=== PATIENT | male | born 1995 | race Caucasian/White ===

== ENCOUNTER 2017-06-06 16:13 | Emergency (ER) | payer OTHER ==
[~2017-06-06] VITALS: Ht 170.2 cm; Wt 90.0 kg
[2017-06-06 16:16] VITALS: TEMP 36.8; Ht 170.2 cm; Wt 90.0 kg
--- NOTE | 2017-06-06 16:45 | EMERGENCY ROOM VISIT NOTE ---
History Report prepared by Andi: Daniel Yeung Under the Supervision of: Dr. Carson Murphy M.D. First contact with patient: 16:18 Chief Complaint: CHEST PAIN Stated Complaint: CHEST PAIN Nursing Triage Summary: pt reports he is here for chest pain started friday and went to pcp had ekg sent to ed for further eval History of Present Illness The patient is a 22 year old male who presents to the Emergency Room with complaints of waxing and waning left-sided chest pain that started 5 days ago. He states that when the pain started, the pain was a 6 or a 7 out of 10 in severity, and that episode lasted about 5 minutes. The patient says that the pain then mostly went away, and has been a 0 or a 1 out of 10 in severity since then. He notes that he was driving back to [place] [employer] 5 days ago from [place], which is about a [address]. The patient says that the pain worsens with deep breathing as well as sitting up. He notes that leaning forward does not change the severity of the pain. He adds that he was seen at [facility] on [address] this morning, and after having an EKG done there, he was sent here for further evaluation. The patient was noted to be mildly hypertensive there. The patient says that when he was told that he had to come here, the chest pain worsened. He states that he is still having the worsened pain. He says that at times the pain radiates down to his abdomen. He states that he has never had chest pain like this before 5 days ago. He adds that he has been a bit short of breath at times. The patient notes that he has not had any major recent illnesses. He states that he has not taken any medications for the pain. The patient notes that his grandmother did have heart problems. Pt denies LOC, headache, fevers, chills, diaphoresis, visual changes, neck pain, tearing pain radiating to the back, personal history or family history of aneurysm or pulmonary embolism, leg swelling, coagulation abnormalities, recent surgery or immobilization, nausea, vomiting, melena, hematochezia, urinary symptoms, numbness, weakness, lymphadenopathy, rash, or other complaints. Source of History: patient Onset: 5 days ago Position: chest (left) Symptom Intensity: at worst a 6 or 7 out of 10 Timing: waxes/wanes Modifying Factors (Worsening): breathing, other (sitting up) Associated Symptoms: + SOB, + abdominal pain Review of Systems See HPI for pertinent positives and negatives. A total of ten systems were reviewed and were otherwise negative. Past Medical & Surgical Medical Problems: (1) No chronic diseases present Family History Heart disease Social History Smoking Status: Never Smoker Marital Status: single Housing Status: lives with roommate Occupation Status: [employer] student Current/Historical Medications No Active Prescriptions or Reported Meds Allergies Coded Allergies: No Known Allergies (Unverified , 06/06/17) Physical Exam Vital Signs Date Time Temp Pulse Resp B/P (MAP) Pulse Ox O2 Delivery O2 Flow Rate FiO2 06/06/17 20:01 129/71 06/06/17 20:00 81 13 98 06/06/17 19:45 70 17 97 06/06/17 19:31 135/76 06/06/17 19:30 76 21 98 06/06/17 19:15 72 97 06/06/17 19:01 135/75 06/06/17 19:00 83 19 98 06/06/17 18:01 125/80 06/06/17 18:00 74 20 97 Room Air 06/06/17 17:31 128/78 06/06/17 17:30 64 21 98 Room Air 06/06/17 17:02 96 Room Air 06/06/17 17:02 66 16 127/72 96 Room Air 06/06/17 17:02 96 Room Air 06/06/17 16:16 36.8 70 18 148/89 99 Room Air Physical Exam GENERAL: Awake, alert, well-appearing, in no distress HENT: Normocephalic, atraumatic. Oropharynx unremarkable. EYES: Normal conjunctiva. Sclera non-icteric. NECK: Supple. No nuchal rigidity. FROM. No masses. RESPIRATORY: Clear to auscultation. No wheezes. No rales. Normal respiratory effort. CARDIAC: Normal rate. Normal rhythm. No murmurs. No rubs. Extremities warm and well perfused. Pulses equal. No JVD. Normal S1 and S2. GI: Soft, non-distended. No tenderness to palpation. No rebound or guarding. No masses. RECTAL: Deferred. MUSCULOSKELETAL: Atraumatic. Chest examination reveals no tenderness. The back is symmetrical on inspection without obvious abnormality. There is no CVA tenderness to palpation. No joint edema. LOWER EXTREMITIES: Calves are equal size bilaterally and non-tender. No edema. No discoloration. NEURO: Normal sensorium. No sensory or motor deficits noted. SKIN: No rash or jaundice noted. Medical Decision & Procedures ER Provider Diagnostic Interpretation: X-ray: Per my interpretation, radiologist review. CHEST ONE VIEW PORTABLE CLINICAL HISTORY: CHEST PAIN pain COMPARISON STUDY: No previous studies for comparison. FINDINGS: The bones soft tissues and hemidiaphragms are normal. The cardiomediastinal silhouette is normal. The lungs are clear. The pulmonary vasculature is normal. IMPRESSION: Negative chest. The above report was generated using voice recognition software. It may contain grammatical, syntax or spelling errors. Electronically signed by: Juan Luis Santana M.D. 06/06/2017 5:00 PM Dictated Date/Time: 06/06/2017 4:59 PM Laboratory Results 06/06/17 16:51 Red Blood Count 4.98, Mean Corpuscular Volume 90.0, Mean Corpuscular Hemoglobin 32.3, Mean Corpuscular Hemoglobin Concent 35.9, Mean Platelet Volume 8.9, Neutrophils (%) (Auto) 65.6, Lymphocytes (%) (Auto) 23.3, Monocytes (%) (Auto) 6.9, Eosinophils (%) (Auto) 3.9, Basophils (%) (Auto) 0.2, Neutrophils # (Auto) 5.86, Lymphocytes # (Auto) 2.08, Monocytes # (Auto) 0.62, Eosinophils # (Auto) 0.35, Basophils # (Auto) 0.02 06/06/17 16:51 Test 06/06/17 16:51 White Blood Count 8.94 K/uL (4.8-10.8) Red Blood Count 4.98 M/uL (4.7-6.1) Hemoglobin 16.1 g/dL (14.0-18.0) Hematocrit 44.8 % (42-52) Mean Corpuscular Volume 90.0 fL (80-100) Mean Corpuscular Hemoglobin 32.3 pg (25-34) Mean Corpuscular Hemoglobin Concent 35.9 g/dl (32-36) Platelet Count 275 K/uL (130-400) Mean Platelet Volume 8.9 fL (7.4-10.4) Neutrophils (%) (Auto) 65.6 % Lymphocytes (%) (Auto) 23.3 % Monocytes (%) (Auto) 6.9 % Eosinophils (%) (Auto) 3.9 % Basophils (%) (Auto) 0.2 % Neutrophils # (Auto) 5.86 K/uL (1.4-6.5) Lymphocytes # (Auto) 2.08 K/uL (1.2-3.4) Monocytes # (Auto) 0.62 K/uL (0.11-0.59) Eosinophils # (Auto) 0.35 K/uL (0-0.5) Basophils # (Auto) 0.02 K/uL (0-0.2) RDW Standard Deviation 42.6 fL (36.4-46.3) RDW Coefficient of Variation 13.0 % (11.5-14.5) Immature Granulocyte % (Auto) 0.1 % Immature Granulocyte # (Auto) 0.01 K/uL (0.00-0.02) Erythrocyte Sedimentation Rate 7 mm/hr (0-14) D-Dimer < 190 ug/L FEU (0-500) Anion Gap 7.0 mmol/L (3-11) Est Creatinine Clear Calc Drug Dose 136.3 ml/min Estimated GFR () 138.2 Estimated GFR (Non- 119.2 BUN/Creatinine Ratio 15.5 (10-20) Calcium Level 10.0 mg/dl (8.5-10.1) Total Bilirubin 0.6 mg/dl (0.2-1) Direct Bilirubin 0.2 mg/dl (0-0.2) Aspartate Amino Transf (AST/SGOT) 13 U/L (15-37) Alanine Aminotransferase (ALT/SGPT) 21 U/L (12-78) Alkaline Phosphatase 86 U/L (45-117) Total Creatine Kinase 84 U/L (39-308) Creatine Kinase MB 0.5 ng/ml (0.5-3.6) Creatine Kinase MB Ratio 0.6 (0-3.0) Troponin I < 0.015 ng/ml (0-0.045) C-Reactive Protein < 0.29 mg/dl (0-0.29) Total Protein 8.2 gm/dl (6.4-8.2) Albumin 4.2 gm/dl (3.4-5.0) Lipase 115 U/L (73-393) Laboratory results reviewed by me ECG Per My Interpretation Indication: chest pain Rate (beats per minute): 71 Rhythm: normal sinus Findings: no acute ischemic change, no ectopy, other (normal intervals, mild J- point elevation in V3, and lead 2 and 3) Change: EKG from doctor's office earlier today: Sinus rhythm at 66 bpm, no ectopy, mild ST elevation in lead 2 and 3 and AVF, V2 through V6. Repeat EKG done here: Normal sinus rhythm at 67 bpm, minimal ST elevation inferiorly and anteriorly, no ectopy, normal intervals. Similar to first EKG done here. ED Course 1619: EMR was reviewed and the patient has no prior visits. 162: The patient was evaluated in room C5. A complete history and physical exam was performed. 1727: I reevaluated the patient and told him about his x-ray results. 174: I reevaluated and updated the patient. 185: I discussed the patient with Dr. Gunter - [facility] cardiology - he says that given the situation he would recommend starting him on NSAIDS and they will see the patient in the office to reevaluation and consider Colchicine. 190: I reevaluated the patient and he is resting comfortably. Discussed results and discharge instructions: he verbalized understanding and agreement. The patient will be ready for discharge as long as his D-dimer is negative. 1943: I reevaluated the patient and he is resting. He is ready for discharge. Medical Decision Triage Nursing notes reviewed. The patient's presentation and history were concerning for chest pain. Etiologies such as pericarditis, myocarditis, pleurisy, cardiac ischemia, aortic dissection, pulmonary embolism, pneumonia, pneumothorax, musculoskeletal , infections, gastrointestinal, as well as others were entertained. The patient was evaluated. His pain was minimal. He notes that he feels better with lying down. He has some pleuritic component to the pain. He denies any recent illnesses. He traveled for 3 hours on the day of the pain starting but denied any long travel prior to. He has not had any swelling problems in his legs. His ECG done in the primary office does suggest diffuse ST elevation which could represent a pericarditis. This is very mild. Repeat ECG here shows some minimal J-point elevation as noted above but no glaring evidence of pericarditis. Chest x-ray and blood work were obtained. The patient was monitored. The patient's laboratory testing was unremarkable. Biomarkers and d-dimer negative. Repeat ECG was somewhat more convincing of mild diffuse ST elevation. He has had pain for 6 days. He notes it is very minimal, mostly a 1 out of 10. Clinically he looks well. His inflammatory markers are negative. I did consult with Dr. Gunter of cardiology. As the patient is doing exceptionally well it was felt that initiation of NSAIDs would be most appropriate with very close follow-up. Patient will call the office on Friday morning. Colchicine was discussed but we decided to hold for the moment and see how he does. I did discuss this with the patient. He feels comfortable. If necessary cardiology will continue his ibuprofen to taper and also if necessary can add colchicine. I gave my usual and customary discussion regarding this issue. By the evaluation outlined above other emergent etiologies such as those listed in the differential, as well as others, were deemed relatively unlikely. The patient was educated about the findings as listed above. All questions were answered and the patient was pleased with the treatment. Return instructions were outlined and the patient was discharged in stable condition. The patient was referred to cardiology for follow-up for a recheck of the current condition. Medication Reconcilliation Current Medication List: was personally reviewed by me Blood Pressure Screening Patient's blood pressure: Normal blood pressure Impression Primary Impression: Left sided chest pain Additional Impression: Pericarditis Scribe Attestation The scribe's documentation has been prepared under my direction and personally reviewed by me in its entirety. I confirm that the note above accurately reflects all work, treatment, procedures, and medical decision making performed by me. Departure Information Dispostion Home / Self-Care Prescriptions No Active Prescriptions or Reported Meds Referrals No Doctor, Assigned (PCP) Tre Gunter MD Patient Instructions My [facility] Additional Instructions CHEST PAIN INSTRUCTIONS: EKG suggests mild pericarditis. Inflammatory markers and cardiac biomarkers were completely normal. Ibuprofen(Motrin, Advil) may be used for fever or pain. Use 600mg 3 times daily until follow-up with cardiology next week. Additional dosing will be recommended at follow-up. Take with food. Rest and drink plenty of fluids as tolerated. Continue current medications. Avoid strenuous activities and anything that worsens your pain. Resume normal activities once your symptoms resolve. Return to the ER immediately for worsening or persistent chest pain, abdominal pain, vomiting, fevers, chest pains, difficulty breathing, worsening of your condition, or as needed. Follow up with [facility] cardiology on Friday for a recheck of your current condition. Tell the electric truck operator that you were in the ER. Pericarditis was noted on your ECG and Dr. Gunter, line rider, was aware and wants you to be seen. Problem Qualifiers
--- NOTE | 2017-06-06 17:01 | DIAGNOSTIC IMAGING REPORT ---
CHEST ONE VIEW PORTABLE CLINICAL HISTORY: CHEST PAIN pain COMPARISON STUDY: No previous studies for comparison. FINDINGS: The bones soft tissues and hemidiaphragms are normal. The cardiomediastinal silhouette is normal. The lungs are clear. The pulmonary vasculature is normal. IMPRESSION: Negative chest. The above report was generated using voice recognition software. It may contain grammatical, syntax or spelling errors. Electronically signed by: Juan Luis Santana M.D. 06/06/2017 5:00 PM Dictated Date/Time: 06/06/2017 4:59 PM
[2017-06-06 17:02] VITALS: O2SAT 96
[2017-06-06 17:04] LABS: BASO % 0.2 %; BASO ABS # 0.02 K/uL (0-0.2); EOS % 3.9 %; EOS ABS # 0.35 K/uL (0-0.5); HEMATOCRIT 44.8 % (42-52); HEMOGLOBIN 16.1 g/dL (14.0-18.0); IG# 0.01 K/uL (0.00-0.02); LYMPH % 23.3 %; LYMPH ABS # 2.08 K/uL (1.2-3.4); MEAN CORPUSCULAR HEMOGLOBIN 32.3 pg (25-34); MEAN CORPUSCULAR HGB CONC 35.9 g/dl (32-36); MEAN PLATELET VOLUME 8.9 fL (7.4-10.4); MONO % 6.9 %; MONO ABS # 0.62 K/uL (0.11-0.59); NEUT % 65.6 %; NEUT ABS # 5.86 K/uL (1.4-6.5); PLATELET COUNT 275 K/uL (130-400); RED CELL DISTRIBUTION WIDTH SD 42.6 fL (36.4-46.3); WHITE BLOOD COUNT 8.94 K/uL (4.8-10.8)
[2017-06-06 17:25] LABS: ALBUMIN 4.2 gm/dl (3.4-5.0); ALT/SGPT 21 U/L (12-78); BLOOD UREA NITROGEN 14 mg/dl (7-18); CARBON DIOXIDE 27 mmol/L (21-32); CREATININE 0.91 mg/dl (0.60-1.40); GLUCOSE 87 mg/dl (70-99); LIPASE 115 U/L (73-393); POTASSIUM 3.9 mmol/L (3.5-5.1); SODIUM 137 mmol/L (136-145)
[2017-06-06 17:29] LABS: ALKALINE PHOSPHATASE 86 U/L (45-117); AST/SGOT 13 U/L (15-37); CKMB 0.5 ng/ml (0.5-3.6); TOTAL PROTEIN 8.2 gm/dl (6.4-8.2)
[2017-06-06 20:00] VITALS: PULSE 81; O2SAT 98
[2017-06-06 20:01] VITALS: BP 129/71
== END 2017-06-06 20:14 | disposition home or self-care (01) ==
LOC: C.EDB 16:14 → C.EDC 20:14
DX: I31.9 Disease of pericardium, unspecified (principal)